=== PATIENT | female | born 1960 | race Two or more races ===

== ENCOUNTER 2022-08-20 11:56 | Emergency (ER) | payer OTHER ==
[~2022-08-20] VITALS: Ht 172.7 cm; Wt 113.4 kg
[2022-08-20] MEDS ORDERED: PAXIL40 MG PO (12:30)
[2022-08-20] MEDS ORDERED: CLONAZEPAM1 M1 PO (12:30)
[2022-08-20] MEDS ORDERED: WELLBUTRIN XL300 MG PO (12:30)
[2022-08-20] MEDS ORDERED: CLONAZEPAM2 M1 PO (12:31)
[2022-08-20] MEDS ORDERED: SEROQUEL50 MG PO (12:31)
[2022-08-20] MEDS ORDERED: RESTORIL30 M1 PO (12:31)
[2022-08-20] MEDS ORDERED: AMOX-CLAV 875-1 EACH PO (15:30)
[2022-08-20] MEDS ORDERED: KETO10TA2 PO (15:30)
== END 2022-08-20 16:27 | disposition home or self-care (01) ==
LOC: ER 11:56
DX: S62.602A Fracture of unspecified phalanx of right middle finger, initial encounter for closed fracture (principal); W18.30XA Fall on same level, unspecified, initial encounter; Y93.F1 Activity, caregiving, bathing; Y92.012 Bathroom of single-family (private) house as the place of occurrence of the external cause

== ENCOUNTER 2022-09-04 06:36 | Day surgery (SDC) | payer OTHER ==
[~2022-09-04] VITALS: Ht 172.7 cm; Wt 113.9 kg
[~2022-09-04 06:36] MED LIST: AMOX-CLAV 875-1 EACH PO; CLONAZEPAM1 M1 PO; CLONAZEPAM2 M1 PO; KETO10TA2 PO; PAXIL40 MG PO; RESTORIL30 M1 PO; SEROQUEL50 MG PO; WELLBUTRIN XL300 MG PO
== END 2022-09-04 15:40 | disposition home or self-care (01) ==
LOC: CIR.AMB 06:36
PROVIDERS: ATTEND Orthopaedic Surgery Hand Surgery
DX: S62.622B Displaced fracture of middle phalanx of right middle finger, initial encounter for open fracture (principal); Z20.822 Contact with and (suspected) exposure to COVID-19; Z71.6 Tobacco abuse counseling; F17.210 Nicotine dependence, cigarettes, uncomplicated